=== PATIENT | female | born 1995 | race Caucasian/White ===

== ENCOUNTER 2018-01-19 15:32 | Emergency (ER) | payer MEDICAID ==
[2018-01-19 15:51] VITALS: BP 126/75
--- NOTE | 2018-01-19 16:39 | UC ---
Aristeo De Santiago Julia, scribed for Eugenio Barth MD on 01/19/18 at 1559 . Shoulder Pain HPI - HPI Summary HPI Summary: This patient is a 22 year old F presenting to [facility] with a chief complaint of L shoulder pain especially with movement for the past three weeks. She thinks she dislocates and relocates the left shoulder with certain movements. When she puts her shoulder back the pain improves. Current pain with movement is 4/10 in severity. Her LNMP began today. - History of Current Complaint Chief Complaint: UCUpperExtremity Stated Complaint: L ARM/SHOULDER PAIN Time Seen by Provider: 01/19/18 15:53 Hx Obtained From: Patient Hx Last Menstrual Period: 01/18/18 Onset/Duration: Lasting Weeks, Still Present Location Of Pain: Is Discrete @ - L shoulder Pain Intensity: 7 Pain Scale Used: 0-10 Numeric Aggravating Factor(s): Movement Alleviating Factor(s): Rest Associated Signs And Symptoms: Positive: Negative - Allergies/Home Medications Allergies/Adverse Reactions: Allergies Allergy/AdvReac Type Severity Reaction Status Date / Time No Known Allergies Allergy Verified 01/19/18 15:51 Home Medications: Home Medications NK [No Home Medications Reported] 01/19/18 [History Confirmed 01/19/18] PMH/Surg Hx/FS Hx/Imm Hx Previously Healthy: Yes - Surgical History Surgical History: None - Family History Known Family History: Positive: Hypertension - Social History Alcohol Use: Occasionally Substance Use Type: None Smoking Status (MU): Former Smoker Review of Systems Constitutional: Negative Musculoskeletal: Myalgia - L shoulder pain All Other Systems Reviewed And Are Negative: Yes Physical Exam - Summary Physical Exam Summary: VITAL SIGNS: Reviewed. GENERAL: Patient is a well-developed and nourished female who is lying comfortable in the stretcher. Patient is not in any acute respiratory distress. HEAD AND FACE: Normocephalic EYES: PERRLA, EOMI x 2. EARS: Hearing grossly intact. MOUTH: Oropharynx within normal limits. NECK: Supple, trachea is midline, no adenopathy, no JVD, no carotid bruit. CHEST: Symmetric, no tenderness at palpation LUNGS: Clear to auscultation bilaterally. No wheezing or crackles. CVS: Regular rate and rhythm, S1 and S2 present, no murmurs or gallops appreciated. ABDOMEN: Soft, non-tender. Bowel sounds are normal. No abdominal abnormal pulsations. EXTREMITIES: Full ROM in all major joints, no edema, no cyanosis or clubbing. NEURO: Alert and oriented x 3. No acute neurological deficits. Speech is normal and follows commands. SKIN: Dry and warm Triage Information Reviewed: Yes Vital Signs: Initial Vital Signs Temp 97.7 F 01/19/18 15:46 Pulse 65 01/19/18 15:46 Resp 18 01/19/18 15:46 BP 126/75 01/19/18 15:46 Pulse Ox 100 01/19/18 15:46 Vital Signs Reviewed: Yes Shoulder Course/Dx - Course Assessment/Plan: X-ray of the left shoulder he impression: No acute fracture dislocation. I believe that the patient has a rotator cuff injury therefore the patient with the patient is in a shoulder immobilizer and discharged home with a follow-up with orthopedics. Patient understands and agrees. I discussed all the findings and test results with the patient and Patient was instructed to return to the or go to the ED if develops any fever, increase sore throat unable to swallow, drooling, unable to open their mouth, or any other symptoms. The patient understands and agrees. Plan of care was discussed with the patient and understands and agrees. All questions were answered at patient satisfaction. There were no further complaints or concerns. Patient is A + O X 3. hemodynamically stable. - Differential Dx/Diagnosis Differential Diagnosis/HQI/PQRI: Arthritis, Fracture (Closed), Sprain, Strain Provider Diagnoses: Rotator cuff injury Discharge - Sign-Out/Discharge Documenting (check all that apply): Discharge/Admit/Transfer - Discharge Plan Condition: Stable Disposition: HOME Referrals: No Primary Care Phys,NOPCP [Primary Care Provider] - - Billing Disposition and Condition Condition: STABLE Disposition: HOME The documentation as recorded by the Aristeo person Julia accurately reflects the service I personally performed and the decisions made by me, Eugenio Barth MD.
--- NOTE | 2018-01-19 16:39 | RAD ---
Indication: LEFT shoulder pain following playing baseball a few weeks ago. Instability sensation. Comparison: No relevant prior exams available on the [facility] [place] [facility] PACS for comparison. Technique: Internal rotation AP, external rotation Grashey, scapular Y, axillary views LEFT shoulder Report: Mild transverse widening at the AC joint measuring 0.7 cm. Normal coracoclavicular distance. Normal glenohumeral joint alignment. Negative for fracture. Unremarkable soft tissue contours. IMPRESSION: Low-grade AC joint separation based on mildly increased transverse gap at the, clavicular joint.
== END 2018-01-19 16:47 | disposition home or self-care (01) ==
LOC: UCEAST 15:32
DX: S46.002A Unspecified injury of muscle(s) and tendon(s) of the rotator cuff of left shoulder, initial encounter (principal); S43.102A Unspecified dislocation of left acromioclavicular joint, initial encounter; X58.XXXA Exposure to other specified factors, initial encounter; Y93.9 Activity, unspecified; Y92.9 Unspecified place or not applicable; I10 Essential (primary) hypertension
CPT/HCPCS: 99202; G0463

== ENCOUNTER 2018-01-26 11:23 | Emergency (ER) | payer MEDICAID ==
[2018-01-26 11:47] VITALS: BP 127/68
--- NOTE | 2018-01-26 12:14 | UC ---
Shoulder Pain HPI - HPI Summary HPI Summary: 22 y/o female presents to the urgent care c/o Left shoulder pain for the past 3 weeks. Pt states she has Hx of Left shoulder dislocation, which she relocates easily and pain is gone. She also reports she was here at the clinic 1 week ago w/ similar symptoms and Dx w/ mild AC-joint separation . However yesterday she was lifting some weeks and her pain was exacerbated. Today pain is sharp,8/10 radiating to her left upper arm, worsen by movement. She took ibuprofen 600mg PO about 2 hrs ago to alleviate symptoms. Pt denies numbness or tingling sensation over the left arm, SON, chest pain, abdominal pain, N/V/D. - History of Current Complaint Chief Complaint: UCUpperExtremity Stated Complaint: SHOULDER INJURY Time Seen by Provider: 01/26/18 12:12 Hx Obtained From: Patient Hx Last Menstrual Period: 01/21/18 Onset/Duration: Gradual Onset, Lasting Weeks - 3 weeks, Worse Since - yesterday Timing: Constant Severity Initially: Mild Severity Currently: Severe Location Of Pain: Is Discrete @ - left shoulder, Radiates To - left upper arm Pain Intensity: 8 - worse w/ movement Pain Scale Used: 0-10 Numeric Character: Sharp, Spasmodic Aggravating Factor(s): Movement, Lifting, Flexion, Abduction Alleviating Factor(s): Rest, OTC Meds Associated Signs And Symptoms: Positive: Negative. Negative: Swelling, Redness , Bruising, Fever, Weakness, Numbness/Tingling Related History: Dominant Hand Right - Risk Factors Non-Orthopedic Risk Factor: Negative DVT Risk Factors: Negative Septic Arthritis Risk Factor: Negative - Allergies/Home Medications Allergies/Adverse Reactions: Allergies Allergy/AdvReac Type Severity Reaction Status Date / Time No Known Allergies Allergy Verified 01/26/18 11:47 PMH/Surg Hx/FS Hx/Imm Hx Previously Healthy: Yes - pt denies PMHX - Surgical History Surgical History: None - Family History Known Family History: Positive: Hypertension - Social History Occupation: Employed Full-time, Student Lives: With Family Alcohol Use: Occasionally Substance Use Type: None Smoking Status (MU): Former Smoker Review of Systems Constitutional: Negative Skin: Negative Eyes: Negative ENT: Negative Respiratory: Negative Cardiovascular: Negative Gastrointestinal: Negative Genitourinary: Negative Motor: Negative Neurovascular: Negative Musculoskeletal: Decreased ROM - left shoulder, Other: - left shoulder pain Neurological: Negative Psychological: Negative Is Patient Immunocompromised?: No All Other Systems Reviewed And Are Negative: Yes Physical Exam - Summary Physical Exam Summary: Vital Signs Reviewed: Yes General: well developed, well nourished female sitting in the examining table w/ o any apparent distress, Eyes: Positive: Conjunctiva Clear - PERRLA, EOMI, fundi grossly normal ENT: Positive: Normal ENT inspection, Hearing grossly normal, Pharynx normal, TMs normal Neck: Positive: Supple, Nontender, No Lymphadenopathy Respiratory: Positive: Chest non-tender, Lungs clear, Normal breath sounds, No respiratory distress Cardiovascular: Positive: RRR, No Murmur, Pulses Normal, Brisk Capillary Refill Abdomen Description: Positive: Nontender, No Organomegaly, Soft. Negative: CVA Tenderness (R), CVA Tenderness (L) Bowel Sounds: Positive: Present Musculoskeletal: Positive: Strength Intact, LF shoulder: The L shoulder is without obvious asymmetry or deformity when compared to the R shoulder. No surface trauma, ecchymosis, crepitus. No bony deformity or prominence of humeral head. No erythema, warmth. tender to palpation over the clavicle, scapula. and over Acromioclavicular joint and humeral head with mild swelling, NT to palpation of the bicipital groove . NT to palpation of the muscles of the sternocleidomastoid, pectoralis, tenderness over biceps/triceps, deltoid, trapezius, . Limited ROM due to pain. "empty can and drop arm test unable to perform due to pain. No axillary tenderness or lymphadenopathy. Normal sensation over the deltoid and fingers. Distal motor and neurovascular status is intact. Neurological Exam: Normal Psychological Exam: Normal Skin Exam: Normal Triage Information Reviewed: Yes Vital Signs: Initial Vital Signs Temp 98.2 F 01/26/18 11:40 Pulse 73 01/26/18 11:40 Resp 18 01/26/18 11:40 BP 127/68 01/26/18 11:40 Pulse Ox 100 01/26/18 11:40 Shoulder Course/Dx - Course Course Of Treatment: 22 y/o female presents to the urgent care c/o Left shoulder pain for the past 3 weeks. Pt states she has Hx of Left shoulder dislocation, which she relocates easily and pain is gone. She also reports she was here at the clinic 1 week ago w/ similar symptoms and Dx w/ mild AC-joint separation . However yesterday she was lifting some weeks and her pain was exacerbated. Today pain is sharp,8/10 radiating to her left upper arm, worsen by movement. She took ibuprofen 600mg PO about 2 hrs ago to alleviate symptoms. Pt denies numbness or tingling sensation over the left arm, SON, chest pain, abdominal pain, N/V/D. Hx obtained. Pt w/ probably rotatr cuff injury since there is mild AC-widening as per left shoulder X-ray done last week. I discussed Pt's symptoms w/ Dr Mobley and he recommended shoulder immobilization w. sling and NSAIDs and Orthpedica and PT referral for further evalaution and treatment. Pt educated on X-ray resulrs and the importance of avoid strenuous exercise of heavy lifting and f/u w/ Orthopedic DR Triplett for further managment. Medications sent to pharmacy. Pt givne Tylenol PO ad the clinic for pain. Pt tolerated well medication. Shoulder immobilized w/ shoulder sling. Pt understood and agreed w/ plan of care and Pt left the clinic hemodynamically stable A&OX3 - Differential Dx/Diagnosis Differential Diagnosis/HQI/PQRI: Contusion, Dislocation, Rotator Cuff Injury, Sprain, Strain, Tendonitis Provider Diagnoses: 1- Acute left shoulder pain s/p injury Discharge - Sign-Out/Discharge Documenting (check all that apply): Discharge/Admit/Transfer - D/C home - Discharge Plan Condition: Stable Disposition: HOME Prescriptions: Ibuprofen TAB* [Motrin TAB* 800 MG] 800 mg PO Q6H PRN #30 tab PRN Reason: Pain predniSONE TAB* [Deltasone 20 MG TAB*] 20 mg PO DAILY #11 tab Patient Education Materials: Shoulder Sprain (ED) Forms: *Work Release Referrals: [facility] [place] [place] [facility] REFERRAL [Outside] Espinoza Triplett MD [Medical Doctor] - 1 Week Additional Instructions: 1-Please take medications as directed to alleviate pain and swelling. 2-Please apply ice, keep your shoulder immobilized with the shoulder sling for 3 -4 days and then resume movement slowly 3- Please f/u with Orthopedic Dr Triplett if not improvement of symptoms for further evaluation and treatment. 4- Please f/u Physical therapy referral for further evaluation and treatment. - Billing Disposition and Condition Condition: STABLE Disposition: Home
[2018-01-26] MEDS ORDERED: Acetaminophen TAB* 325 MG PO ONE (13:05)
== END 2018-01-26 13:15 | disposition home or self-care (01) ==
LOC: UCEAST 11:23
DX: M25.512 Pain in left shoulder (principal); Z82.49 Family history of ischemic heart disease and other diseases of the circulatory system; Z87.891 Personal history of nicotine dependence
CPT/HCPCS: 99213; A9270-GY; G0463